=== PATIENT | female | born 1955 | race Caucasian/White ===

== ENCOUNTER → 2019-03-23 | Outpatient (CLI) | payer BC ==
--- NOTE | 2019-03-23 17:51 | RADIOLOGY IMAGING REPORT ---
FACILITY: [facility] PATIENT NAME: Birdie Hammond : 1955 MR: [id number] V: [id number] EXAM DATE: ORDERING PHYSICIAN: AI GRIMM TECHNOLOGIST: [place] [facility] [place] : 1955 Visit/Account:[id number] Date of Sevice: 03/23/2019 EXAMINATION: Single Isotope SPECT Imaging with Exercise and Gated SPECT Imaging DATE OF EXAMINATION: 03/23/2019 DATE OF INTERPRETATION: 03/23/2019 REQUESTING PHYSICIAN: AI GRIMM INDICATION: The patient is a 63-year-old woman evaluated for chest pain. PROCEDURE: After informed consent the patient received an intravenous injection of 12.4 mCi of Tc-9 9m sestamibi followed at the appropriate time interval by rest imaging. The patient then exercised a ccording to the standard Abdirahman protocol for 6 minutes and 40 seconds minutes achieving 8 METS. Resti ng heart rate was 58 bpm with a peak heart rate of 157 bpm which is 100 % of maximal predicted heart rate for age. Blood pressure at rest was 156 / 102; blood pressure during exercise was 222 / 122. There was no chest pain during exercise. Exercise was discontinued because of target heart rate was reached. Baseline EKG demonstrates sinus rhythm with rightward axis versus possible incorrectly plac ement, cannot rule out old anterior infarct.. There were no EKG changes of ischemia at peak exercise . Approximately one minute and 30 seconds prior to the termination of exercise, the patient received an intravenous injection of 31 mCi of Tc-99m sestamibi followed by stress imaging. RAW DATA: Examination of the summed raw data revealed a adequate quality study. MYOCARDIAL PERFUSION: The tomographic images demonstrate normal myocardial perfusion on prone stress images. GATED IMAGES: The gated images demonstrate normal LV wall motion and systolic function, LVEF 66% IMPRESSION: 1. Good exercise capacity, target heart rate was achieved, no chest pain or ischemic ECG changes wit h peak stress. 2. Normal myocardial perfusion scan. 3. Normal LV systolic function; LVEF 66%. 4. Based on the results of this exam, the patient appears to be at low risk for future cardiovascular events. Report Dictated By: Fabian Caldwell at 03/23/2019 5:32 PM Report E-Signed By: Fabian Caldwell at 03/23/2019 5:44 PM WSN:[id number]
== END ==
LOC: NUC 00:18
PROVIDERS: ATTEND Physician Assistant
DX: R94.31 Abnormal electrocardiogram [ECG] [EKG] (principal)
CPT/HCPCS: 78452; A9500

== ENCOUNTER → 2019-04-24 | Outpatient (CLI) | payer BC ==
--- NOTE | 2019-04-24 17:32 | RADIOLOGY IMAGING REPORT ---
FACILITY: [facility] - [place] PATIENT NAME: VON RUSSELL : [id number] MR: [id number] V: [id number] EXAM DATE: ORDERING PHYSICIAN: AI GRIMM TECHNOLOGIST: Ivon Poe PROCEDURE: BILATERAL DIGITAL SCREENING MAMMOGRAM WITH CAD ASSISTED INTERPRETATION & 3D TOMOSYNTHESIS REASON FOR STUDY: Screening. FAMILY HISTORY OF BREAST CANCER: Paternal aunt in her 70's. BREAST PROCEDURES/TREATMENTS: None. COMPARISON: None this is the patient's baseline mammogram. VIEWS OBTAINED: Bilateral 2D & 3D full field CC & MLO projections. BREAST DENSITY: The breasts are heterogeneously dense which can obscure small masses. MAMMOGRAM FINDINGS: In the upper portion of the Right breast in the Right MLO view in the middle depth there is an ovoid circumscribed area of increased density for which Spot compression view is recommended. This is best seen on Tomographic slice 20. In the lateral portion of the Right breast in the Right CC view there a non-circumscribed irregular area of increased density for which Spot compression view is recommended. This is best seen on Tomographic slice 20. IMPRESSION: BIRADS 0: Incomplete. Additional views of the Right breast recommended as described and possible Right breast Ultrasound depending additional imaging findings. DIAGNOSTIC CATEGORY 0--INCOMPLETE: NEED ADDITIONAL IMAGING EVALUATION. RECOMMENDATIONS: ADDITIONAL MAMMOGRAPHIC VIEWS REQUIRED: RIGHT BREAST. Dictated by: Kanchan Claire M.D. on 04/24/2019 at 15:35 Transcribed by: DENEEN on 04/24/2019 at 16:02 Approved by: Kanchan Claire M.D. on 04/24/2019 at 17:27 [facility]
== END ==
LOC: MAMO 02:06
PROVIDERS: ATTEND Physician Assistant
DX: Z12.31 Encounter for screening mammogram for malignant neoplasm of breast (principal); R92.8 Other abnormal and inconclusive findings on diagnostic imaging of breast
CPT/HCPCS: 77063; 77067